=== PATIENT | female | born 1980 | race Caucasian/White ===

== ENCOUNTER 2019-05-17 09:41 | Inpatient (IN) ==
[~2019-05-17 09:41] MED LIST: CefOXitin Inj 2 GM in Sodium Chloride 0.9% 100 ML IV ONE; LIDOCAINE W/ SODIUM BICARB 0.5 ML SYR ONE; LIDOCAINE W/ SODIUM BICARB 0.5 ML SYR SUBD PRN; Lactated Ringers 1,000 ML PRIMARY IV ONE; Nasal Sanitizer POPSWAB ampule 3 AMP (Nozin) PREOP DOSE ENOS SCH; Sodium Chloride 0.9% 100 ML IV ONE
[2019-05-17 10:06] LABS: BILIRUBIN,URINE NEGATIVE (NEG); CLARITY,URINE CLEAR (CLEAR); COLOR,URINE YELLOW (Y); GLUCOSE, URINE (UA) NEGATIVE (NEG); OCCULT BLOOD,URINE NEGATIVE (NEG); PH,URINE 6.5 (5.0-8.5); PROTEIN,URINE NEGATIVE (NEG); UROBILINOGEN,URINE 0.2 EU/dL (0.2)
[2019-05-17 10:07] LABS: URINE SAMPLE TYPE CLEAN CATCH URINE
[2019-05-17] MEDS: Lactated Ringers 1,000 ML PRIMARY IV SCH ×5 (10:45→23:13)
[2019-05-17] MEDS ORDERED: MIDAZOLAM HCL 2 MG/2 ML VIAL ONE (11:06)
[2019-05-17] MEDS ORDERED: ROCURONIUM 10 MG/1 ML - 5 ML VIAL IVP ONE (11:06)
[2019-05-17] MEDS ORDERED: fentaNYL Inj 250 MCG/5 ML VIAL ONE (11:06)
[2019-05-17] MEDS ORDERED: LIDOCAINE MPF 2% - 5 ML (20 MG/1 ML) ONE (11:07)
[2019-05-17] MEDS ORDERED: PROPOFOL 10 MG/1 ML (200 MG/20 ML) VIAL IV ONE (11:07)
[2019-05-17 11:33] LABS: Hematocrit [HCT] 43.3 % (37.0-47.0); Hemoglobin [HGB] 14.1 g/dL (12.0-16.0)
[2019-05-17] MEDS ORDERED: BUPIVACAINE 0.5% W/ EPI - 10 ML VIAL ONE (12:15)
[2019-05-17] MEDS ORDERED: DEXAMETHASONE PF 10 MG/1 ML VIAL ONE (12:15)
[2019-05-17] MEDS ORDERED: SCOPOLAMINE HYDROBROMIDE 1.5 MG - 1 EACH PATCH TRANSDERM ONE (12:15)
[2019-05-17] MEDS ORDERED: Propofol 1,000 MG/100 ML VIAL IV ONE ×2 (12:46→13:47)
[2019-05-17] MEDS ORDERED: Lactated Ringers 1,000 ML PRIMARY IV ONE (13:10)
[2019-05-17] MEDS ORDERED: BUPivacaine Inj 0.5% PF (5mg/ml) 10ml vial ONE (14:25)
[2019-05-17] MEDS ORDERED: BUPivacaine Liposome/PF (Exparel) Inj 20ml vial INFIL ONE (14:26)
[2019-05-17] MEDS ORDERED: BUPivacaine Inj 0.25% PF - 10ml vial ONE (14:26)
[2019-05-17] MEDS ORDERED: HYDROmorphone 2 MG/1 ML IVP PRN ×2 (15:09→15:28)
[2019-05-17] MEDS ORDERED: KETOROLAC 15 MG/1 ML VIAL IVP PRN (15:09)
[2019-05-17] MEDS ORDERED: Zolpidem Tab 5 MG TAB PO PRN (15:09)
[2019-05-17] MEDS ORDERED: Sodium Chloride 0.9% 1,000 ML PRIMARY IV SCH (15:15)
[2019-05-17] MEDS ORDERED: LIDOCAINE W/ SODIUM BICARB 0.5 ML SYR SUBD PRN (15:28)
[2019-05-17] MEDS ORDERED: PROMETHAZINE 25 MG/1 ML VIAL IM PRN (15:28)
[2019-05-17] MEDS ORDERED: KETOROLAC 30 MG/1 ML VIAL ONE (15:29)
[2019-05-17] MEDS ORDERED: ONDANSETRON 4 MG/2 ML VIAL IVP ONE (15:36)
[2019-05-17] MEDS ORDERED: KETOROLAC 30 MG/1 ML VIAL IM ONE (15:36)
[2019-05-17] MEDS ORDERED: fentaNYL Inj 100 MCG/2 ML VIAL ONE (15:53)
[2019-05-17] MEDS: fentaNYL Inj 100 MCG/2 ML VIAL IVP PRN ×2 (15:55→16:05)
[2019-05-17] MEDS ORDERED: ONDANSETRON 4 MG/2 ML VIAL ONE (15:56)
[2019-05-17] MEDS: Acetaminophen 1000mg Inj 1,000 MG/100 ML VIAL IV ONE ×2 (17:01→18:23)
[2019-05-17] MEDS: Ondansetron ODT Tab 4 MG TAB PO PRN (20:16)
[2019-05-17] MEDS: DOCUSATE 100 MG CAPSULE PO SCH (20:16)
[2019-05-17] MEDS: KETOROLAC 15 MG/1 ML VIAL IVP PRN (20:36)
[2019-05-17] MEDS: HYDROmorphone 2 MG/1 ML IVP PRN ×2 (20:37→23:13)
[2019-05-18] MEDS: Ondansetron ODT Tab 4 MG TAB PO PRN ×5 (02:41→20:02)
[2019-05-18] MEDS: HYDROmorphone 2 MG/1 ML IVP PRN ×5 (02:42→20:42)
[2019-05-18] MEDS: KETOROLAC 15 MG/1 ML VIAL IVP PRN ×4 (04:55→23:38)
[2019-05-18] MEDS: Lactated Ringers 1,000 ML PRIMARY IV SCH ×2 (04:55→08:30)
[2019-05-18 04:59] LABS: BASOPHILS # (AUTO) 0.02 10*3/UL; BASOPHILS % (AUTO) 0.1 % (0-1); EOSINOPHILS # (AUTO) 0 10*3/UL; EOSINOPHILS % (AUTO) 0 % (0-8); LYMPHOCYTES # (AUTO) 0.97 10*3/uL; MEAN CORPUSCULAR HGB CONC 32.4 g/dL (33-37); MEAN CORPUSCULAR VOLUME 84.5 FL (81-99); MONOCYTES # (AUTO) 1.15 10*3/UL (0.3-0.8); MONOCYTES % (AUTO) 6.5 % (5-15); NEUTROPHILS # (AUTO) 15.44 10*3/UL; NEUTROPHILS % (AUTO) 87.1 % (50-80); PLATELET MORPHOLOGY COMMENT NORMAL MORPHOLOGY (NORM); RBC MORPHOLOGY COMMENT NORMAL MORPHOLOGY (NORM); RED BLOOD COUNT 4.38 10^6/uL (4.20-5.40); WBC MORPHOLOGY COMMENT NORMAL MORPHOLOGY (NORM)
[2019-05-18] MEDS: DOCUSATE 100 MG CAPSULE PO SCH ×2 (10:07→20:02)
[2019-05-18] MEDS: IBUPROFEN 600 MG TABLET PO PRN (14:15)
[2019-05-18] MEDS ORDERED: Sodium Chloride 0.9% 1,000 ML PRIMARY IV ONE (15:03)
[2019-05-18] MEDS: ACETAMINOPHEN 325 MG TABLET PO PRN ×2 (17:36→23:37)
[2019-05-18] MEDS: Sodium Chloride 0.9% 1,000 ML PRIMARY IV SCH (18:16)
[2019-05-19] MEDS: Ondansetron ODT Tab 4 MG TAB PO PRN (01:40)
[2019-05-19] MEDS: Sodium Chloride 0.9% 1,000 ML PRIMARY IV SCH ×2 (01:41→10:00)
[2019-05-19] MEDS: HYDROmorphone 2 MG/1 ML IVP PRN (02:08)
[2019-05-19] MEDS: ACETAMINOPHEN 325 MG TABLET PO PRN ×3 (05:18→20:31)
[2019-05-19] MEDS: KETOROLAC 15 MG/1 ML VIAL IVP PRN (05:19)
[2019-05-19] MEDS: DOCUSATE 100 MG CAPSULE PO SCH ×2 (09:00→20:31)
[2019-05-19] MEDS: IBUPROFEN 600 MG TABLET PO PRN ×2 (12:47→18:59)
[2019-05-20] MEDS: IBUPROFEN 600 MG TABLET PO PRN ×2 (01:04→08:50)
[2019-05-20 01:05] VITALS: TEMP 98.2
[2019-05-20] MEDS: ACETAMINOPHEN 325 MG TABLET PO PRN (05:26)
[2019-05-20 08:47] VITALS: BP 139/87; RESP 16; O2SAT 93
[2019-05-20] MEDS: DOCUSATE 100 MG CAPSULE PO SCH (08:50)
== END 2019-05-20 11:28 | disposition home or self-care (01) | DRG 743 ==
LOC: OPS 09:41 → MED/SURG 16:11
PROVIDERS: ADMIT Obstetrics & Gynecology; ATTEND Obstetrics & Gynecology
PROC: [UNRECOGNIZED PROCEDURE] (2019-05-17 11:45)